=== PATIENT | male | born 1955 | race Caucasian/White ===

== ENCOUNTER 2017-01-26 07:50 | Emergency (ER) | payer OTHER ==
[~2017-01-26] VITALS: Ht 185.4 cm; Wt 97.3 kg
[2017-01-26] MEDS ORDERED: AUGMENTIN875 MG PO (09:51)
[2017-01-26 11:55] VITALS: BP 107/75
== END 2017-01-26 12:06 | disposition home or self-care (01) ==
LOC: EME 07:50
DX: J36 Peritonsillar abscess (principal); K58.9 Irritable bowel syndrome, unspecified
CPT/HCPCS: 99281; 99284; J0295; J1885; J7030; J7050